=== PATIENT | male | born 1975 | race Caucasian/White ===

== ENCOUNTER 2024-11-13 05:58 | Day surgery (SDC) | payer OTHER ==
[2024-11-11 08:23] VITALS: BP 129/77
[~2024-11-13] VITALS: Ht 182.9 cm; Wt 81.8 kg
[~2024-11-13 05:58] MED LIST: ALLEGRA-D 24 H1 EACH PO; MIDAZOLAM HCL 5 MG/5 ML VIAL IV PRN; fentaNYL citrate 100 MCG/2 ML VIAL IV PRN
[2024-11-13 06:11] VITALS: BP 133/81
[2024-11-13] MEDS ORDERED: FLONASE ALLERG9.9 ML NAS (06:16)
[2024-11-13] MEDS ORDERED: AIRBORNE CHEWA1 EACH PO (06:17)
[2024-11-13] MEDS ORDERED: DAILY VALUE1 EACH PO (06:17)
[2024-11-13] MEDS ORDERED: propofoL 200 MG/20 ML VIAL ONE (06:33)
[2024-11-13] MEDS ORDERED: IBLOOD GLUCOSE TEST STRIP 1 EA TEST VI PRN (07:00)
[2024-11-13] MEDS ORDERED: LACTATED RINGER'S 1,000 ML IV SCH (07:00)
[2024-11-13] MEDS ORDERED: LIDOCAINE HCL 1% 5 ML SDV INJ ONE (07:00)
[2024-11-13] MEDS ORDERED: LACTATED RINGER'S 1,000 ML IV ONE (07:32)
--- NOTE | 2024-11-13 07:55 | NUR ---
11/13/24 075Irasema Granados 0742- PT ARRIVES TO THE PACU WITH A NATURAL AIRWAY ON 10L OF O2 VIA MASK. BREATHING IS EVEN AND UNLABORED. PT IS LAYING ON HIS LEFT SIDE AND HIS ABDOMEN IS SOFT AND NONDISTENDED. LR INFUSING IN HIS RIGHT FOREARM. ALL MONITORS PUT IN PLACE. VSS. PT IS NON REACTIVE TO VERBAL AND TACTILE STIMULI. 0748- O2 TITRATED TO 6L WITH PT SATS AT 100%. NO APPARENT SIGNS OF DISTRESS. WILL CONTINUE TO MONITOR.
[2024-11-13 08:18] VITALS: BP 108/92
--- NOTE | 2024-11-13 09:02 | OR ---
[facility] [address], [place] [address] Signed DATE OF OPERATION: 11/13/2024 SURGEON: Sapna Camarillo MD PREOPERATIVE DIAGNOSIS: Screening. POSTOPERATIVE DIAGNOSES: 1. Intermittent rectal bleeding. 2. A 4 mm polyps x3 at 6 cm and rectum. 3. [id number]-[id number] internal and external hemorrhoids. 4. Two large internal anal skin tags. 5. Multiple small external anal skin tags. PROCEDURE: Colonoscopy with hot biopsy and snare. ESTIMATED BLOOD LOSS: None. INDICATIONS: David is a 49-year-old gentleman, who came for his initial screening colonoscopy. He talks about hemorrhoids and some intermittent rectal bleeding. 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 He told me he has no family history of colon cancer or polyps. In the office, I had given him a brochure on colonoscopy. We had reviewed the nature of the test. There is risk including, but not limited to gas bloating, crampy abdominal pain, bleeding, perforation requiring surgery, and missed diagnosis. We also reviewed the written instructions of the bowel prep line by line. He told me he has a previous history of methamphetamines and marijuana. He still continues to use alcohol. He said he drinks at least several days a week. Consequently, we asked for monitored anesthesia care with propofol infusion, that proved to be a downing decision as he took a large amount of propofol. He understands he is not able to drive or go to work for 24 hours afterwards. He will need an adult person to take him home. He had expressed understanding and wished to proceed. DESCRIPTION OF PROCEDURE: David was taken into our endoscopy suite and placed in the left lateral decubitus position. He was given monitored anesthesia care with propofol infusion per nurse cardiac monitor technician. A digital rectal exam was performed. He had small multiple circumferential external anal skin tags. He has small external hemorrhoids. Good Electronically Signed By: SAPNA CAMARILLO MD 11/13/24 0902 PATIENT NAME: DAVID HILLMAN OPERATIVE REPORT DATE OF : 75 REPORT #: [id number] PHYSICIAN: SAPNA CAMARILLO MD PCP: GRECIA FERNANDES REPORT IS CONFIDENTIAL AND NOT TO BE RELEASED WITHOUT AUTHORIZATION [facility] [address], [place] [address] Signed sphincter tone. I felt two indurated masses on digital rectal exam. I was able to hook those with my finger bring him out and they looked like large internal anal skin tags. After this, the adult colonoscope was introduced and advanced all around into the cecum under direct visualization of camera. It took a little extra propofol and some abdominal compression to get the scope around. His prep was quite excellent. We could easily see the appendiceal orifice and ileocecal valve. We had slowly withdrawn the scope. We took pictures throughout for photodocumentation. His entire colon was unremarkable. He had three tiny polyps at 6 cm in the rectum, which we removed with a hot biopsy forceps. Upon retroflexion of scope, we could see his internal hemorrhoid columns along with these two large internal anal skin tags. We used our snare over each internal anal skin tag independently and divided those at the base. They were both captured on the end of the scope and brought out for pathologic review. There was excellent hemostasis with the use of the cautery on the snare. After this, the gas was suctioned out, colonoscope removed. David tolerated this procedure quite well. RECOMMENDATIONS: I will see David back in my office in 7 to 14 days to review his results. We will give him a small prescription for some oxycodone as he may have some pain associated with removal of those two internal anal skin tags. Sapna Camarillo MD ALB/MODL /[id number] cc: MD Grecia Watson PA Patient Chart Copies: SAPNA CAMARILLO MD Electronically Signed By: SAPNA CAMARILLO MD 11/13/24 0902 PATIENT NAME: DAVID HILLMAN OPERATIVE REPORT DATE OF : 75 REPORT #: [id number] PHYSICIAN: SAPNA CAMARILLO MD PCP: GRECIA FERNANDES REPORT IS CONFIDENTIAL AND NOT TO BE RELEASED WITHOUT AUTHORIZATION [address] [address] Signed GRECIA FERNANDES ~ Electronically Signed By: SAPNA CAMARILLO MD 11/13/24 0902 PATIENT NAME: DAVID HILLMAN OPERATIVE REPORT DATE OF : 75 REPORT #: [id number] PHYSICIAN: SAPNA CAMARILLO MD PCP: GRECIA FERNANDES REPORT IS CONFIDENTIAL AND NOT TO BE RELEASED WITHOUT AUTHORIZATION
--- NOTE | 2024-11-17 16:06 | PATH ---
[facility] [address] [place] [place] [address] Signed SPECIMEN(S): A COLON POLYP AT 6 CM SPECIMEN(S): B ANAL BIOPSY SPECIMEN SOURCE: A. COLON POLYP AT 6 CM B. ANAL BIOPSY CLINICAL HISTORY: Screening, rectal bleeding, hemorrhoids. Post op: Polyps, internal and external hemorrhoids and skin tags. B) Rule out internal anal skin tag. FINAL PATHOLOGIC DIAGNOSIS: A. Colon polyp at 6 cm: - Hyperplastic polyp (three fragments). B. Anal biopsy: - Polypoid anal-type mucosa with slightly dilated hemorrhoidal vasculature. - Negative for significant atypical features or evidence of malignancy. JVR:konstantin MICROSCOPIC EXAMINATION: Histologic sections of all submitted blocks are examined by light microscopy. These findings, together with the gross examination, support the pathologic diagnosis. GROSS DESCRIPTION: A. The specimen, labeled and designated "[place], colon polyp at 6 cm," is received in formalin and consists of three [place] soft tissue fragments, ranging from 0.2 cm. Entirely submitted in (A1). B. The specimen, labeled and designated "[place]al[place], anal biopsy," is received in formalin and consists of two [place] soft tissue fragments, ranging from 1.2-1.3 cm. Resection margins are inked and specimen is serially sectioned. They are entirely and respectively submitted in in (B1-B2). JS (under the direct supervision of a pathologist) The Gross Description was prepared using a voice recognition system. The report was reviewed for accuracy; however, sound-alike word errors, addition and/or deletions may occur. If there is any question about this report, please contact Client Services. PERFORMING LABORATORY: Technical component was performed by [facility], Aracely Zelaya, PATIENT NAME: WESLEY HILLMAN PATHOLOGY DATE OF : 75 REPORT #: [id number] PHYSICIAN: JANICE PATHOLOGY PCP: GINI FERNANDES REPORT IS CONFIDENTIAL AND NOT TO BE RELEASED WITHOUT AUTHORIZATION [facility] [address] [facility] [address] [facility] [place] [address] Signed [place] [id number] (CLIA# [id number]). Professional interpretation was performed by [facility], [address] [place] [address], [place] [address] (CLIA#: [id number]). Diagnostician: Constantino Ca MD Pathologist Electronically Signed 11/17/2024 Copies: ~ PATIENT NAME: WESLEY HILLMAN PATHOLOGY DATE OF : 75 REPORT #: [id number] PHYSICIAN: JANICE PATHOLOGY PCP: GINI FERNANDES REPORT IS CONFIDENTIAL AND NOT TO BE RELEASED WITHOUT AUTHORIZATION
== END 2024-11-13 08:29 | disposition home or self-care (01) ==
LOC: DS 05:58
PROVIDERS: ATTEND Colon & Rectal Surgery
PROC: 0DBQ8ZZ Excision of Anus, Via Natural or Artificial Opening Endoscopic (ICD-10-PCS; 2024-11-13)
PROC: 0DBP8ZX Excision of Rectum, Via Natural or Artificial Opening Endoscopic, Diagnostic (ICD-10-PCS; principal; 2024-11-13 07:30)
DX: K63.5 Polyp of colon (principal); K62.5 Hemorrhage of anus and rectum; K62.1 Rectal polyp; K64.4 Residual hemorrhoidal skin tags; K64.8 Other hemorrhoids; E78.2 Mixed hyperlipidemia; Z79.899 Other long term (current) drug therapy
CPT/HCPCS: 00811; J2704; J7121